=== PATIENT | female | born 1975 | race Caucasian/White ===

== ENCOUNTER 2017-07-05 07:37 | Day surgery (SDC) | payer OTHER ==
[~2017-07-05 07:37] MED LIST: PROPOFOL INJ 200 MG/20 ML VIAL IV ONE
[2017-07-05] MEDS ORDERED: SIMETHICONE 80 MG TAB.CHEW ONE (09:19)
[2017-07-05 09:53] VITALS: BP 107/62
--- NOTE | 2017-07-05 12:59 | Operative Report ---
Operative Report DATE OF SURGERY: 07/05/17 Operative Report: The risks, benefits and alternatives of the procedure including risks of bleeding, perforation requiring surgery are explained to the patient in detail informed consent is obtained. Patient is brought back to the endoscopy suite and placed in the left, lateral decubital position. Timeout was called. Propofol medications administered. A rectal examination is done which did not reveal any masses, tears or fissures. An Olympus videoscope was inserted into the patient's rectum and the scope then carefully advanced all the way to the cecum. The cecum is identified by the usual anatomical landmarks including the ileocecal valve and the appendiceal office.. Photodocumentation is obtained. The scope is then sequentially pulled back via the various segments of the colon including the ascending colon, hepatic flexure, transverse colon, splenic flexure, descending colon and finally into the rectosigmoid portions of the colon. Retroflexion maneuvers performed. PREOPERATIVE DIAGNOSIS: History of C. difficile colitis in the past, status post treatment with vancomycin. Noted to have colitis on CT scan POSTOPERATIVE DIAGNOSIS: No evidence of pseudomembranous colitis. Left side colon Inflammation status post biopsy. Mild terminal ileitis status post biopsy OPERATION: Colonoscopy with biopsy SURGEON: CARMEN HUNTER ANESTHESIA: LMAC TISSUE REMOVED OR ALTERED: As noted above. COMPLICATIONS: None. ESTIMATED BLOOD LOSS: None. INTRAOPERATIVE FINDINGS: As noted above. PROCEDURE: Patient tolerated the procedure well. No immediate postprocedure complications are noted. Patient discharged in good condition. Discharge date 07/05/2017. Discharge diet: Regular. Discharge activity: Regular. 2-3 week follow-up to discuss findings. Patient is instructed to call the office or proceed to the emergency room should there be any further problems or questions. We will wait on pathology. Hold off on further treatment for C. difficile for now. Probiotics.
== END 2017-07-05 09:35 | disposition home or self-care (01) ==
LOC: END 07:37
PROVIDERS: ATTEND Internal Medicine Gastroenterology
PROC: 0DBG8ZX Excision of Left Large Intestine, Via Natural or Artificial Opening Endoscopic, Diagnostic (ICD-10-PCS; 2017-07-05)
PROC: 0DBB8ZX Excision of Ileum, Via Natural or Artificial Opening Endoscopic, Diagnostic (ICD-10-PCS; principal; 2017-07-05 09:00)
DX: K52.9 Noninfective gastroenteritis and colitis, unspecified (principal); Z79.899 Other long term (current) drug therapy
CPT/HCPCS: 45380; 88305 ×2; 88313 ×2; J2704; 811